=== PATIENT | male | born 1975 | race Caucasian/White ===

== ENCOUNTER 2016-10-04 20:56 | Emergency (ER) | payer BC ==
[~2016-10-04] VITALS: Ht 188 cm; Wt 95.3 kg
[2016-10-04 21:20] VITALS: BP 127/78
[2016-10-04] MEDS ORDERED: NKM (21:21)
[2016-10-04 23:08] VITALS: BP 127/78
--- NOTE | 2016-10-05 01:01 | Emergency Room Report ---
History of Present Illness General Chief Complaint: Cast Check Source: Patient Present Illness HPI [id number] walk-in c/o distal right wrist pain, hand swelling after hard cast placed over weekend at [place] after skiing injury for distal radius non-displaced fx ( seen on Xray copy he has with him). Did not have any reduction. C/o tingling to fingers but denies throbbing. Allergies: Coded Allergies: IODINE (Verified Allergy, Unknown, 10/04/16) Patient History Past Medical History: none Past Surgical History: none Pertinent Family History: none Social History: Denies: alcohol use, drug use, smoking Immunizations: UTD Reviewed Nursing Documentation: PMH: Agreed, PSxH: Agreed Nursing Documentation-PMH Past Medical History: No Stated History Review of Systems All Other Systems: negative except mentioned in HPI Physical Exam Vital Signs Date Time Temp Pulse Resp B/P Pulse Ox O2 Delivery O2 Flow Rate FiO2 10/04/16 21:13 97.9 64 20 127/78 95 Room Air Sp02 EP Interpretation: reviewed, normal General Appearance: normal inspection, well appearing, no apparent distress, alert, GCS 15, non-toxic Head: normocephalic, atraumatic Eyes: bilateral eye EOMI, bilateral eye PERRL ENT: normal ENT inspection, hearing grossly normal, normal voice Neck: normal inspection, full range of motion, supple, no bony tend Respiratory: normal inspection, lungs clear, normal breath sounds, no respiratory distress, no retraction, no wheezing Cardiovascular #1: regular rate, rhythm, no edema Gastrointestinal: normal inspection, normal bowel sounds, non tender, soft, no guarding, no hernia Genitourinary: no CVA tenderness Musculoskeletal: other - Left wrist: hard cast in place. Patient able to move all fingers. 2+ distal radius pulse. +1 non pitting edema Neurologic: normal inspection, alert, oriented x3, responsive, [employer] III-XII nml as tested, motor strength/tone normal, speech normal Psychiatric: normal inspection, judgement/insight normal, mood/affect normal Skin: normal inspection, normal color, no rash Procedures Splinting Splinting : Consent: Verbal Hand-Made Type: plaster Splint: wrist Pre-Proc Neuro Vasc Exam: normal Post-Proc Neuro Vasc Exam: normal Patient Tolerated: Well Complications: None Medical Decision Making Diagnostic Impression: Primary Impression: Wrist fracture Qualified Codes: S62.102A - Fracture of unspecified carpal bone, left wrist, initial encounter for closed fracture ER Course Hard cast removed in ED New radial gutter splint placed Patient feels much better Asked for and given Ortho followup info DC home Last Vital Signs Date Time Temp Pulse Resp B/P Pulse Ox O2 Delivery O2 Flow Rate FiO2 10/04/16 23:08 97.9 84 20 127/78 95 Room Air Status: improved Disposition: HOME, SELF-CARE Condition: Improved Patient Instructions: Cast or Splint Care Additional Instructions: - Follow up with orthopedics in 1-2 weeks CARLI HELTON M.D. Oct 05, 2016 01:01
== END 2016-10-04 23:08 | disposition home or self-care (01) ==
LOC: EMR 21:35
DX: S52.502D Unspecified fracture of the lower end of left radius, subsequent encounter for closed fracture with routine healing (principal); Z91.041 Radiographic dye allergy status
CPT/HCPCS: 29125; 99283